=== PATIENT | female | born 1955 | race Caucasian/White ===

== ENCOUNTER 2020-08-14 16:03 | Inpatient (IN) | payer MEDICARE ==
[~2020-08-14] VITALS: Ht 157.5 cm; Wt 41.3 kg
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
[2020-08-14] MEDS ORDERED: MAG HYDROX/AL HYDROX/SIMETH 30 ML UDC PO PRN (16:30)
[2020-08-14] MEDS ORDERED: MAGNESIUM HYDROXIDE 30 ML UDC PO PRN (16:30)
[2020-08-14] MEDS ORDERED: BLOOD SUGAR DIAGNOSTIC 1 EACH STRIP IN ONE (16:30)
[2020-08-14] MEDS ORDERED: ACETAMINOPHEN 325 MG TABLET PO PRN (16:30)
[2020-08-14] MEDS ORDERED: TEMAZEPAM 7.5 MG CAPSULE PO PRN (16:30)
[2020-08-14] MEDS ORDERED: LORAZEPAM 0.5 MG TABLET PO PRN (16:30)
--- NOTE | 2020-08-14 16:30 | NUR ---
RN-CO: REFUSED MRSA SWAB.
[2020-08-14] MEDS ORDERED: OLAN5TAB3 PO (16:34)
[2020-08-14 18:01] VITALS: BP 94/63
--- NOTE | 2020-08-14 20:00 | NUR ---
RN NOTES: PT. REFUSED VITAL SIGNS , ENCOURAGED X3 STILL REFUSED , PT. BEHAVIOR UNCOOPERTIVE ,ANXIOUS, WILL CONTINUITY WITH CARE.
[2020-08-14 20:41] VITALS: BP 108/57
--- NOTE | 2020-08-15 06:06 | NUR ---
RN NOTES: PT. REFUSED MRSA NARES SWAB , PER PT. I DONT WANT, PT. BEHAVIOR UNCOOPERTIVE ,ANXIOUS, WILL CONTINUITY WITH CARE.
--- NOTE | 2020-08-15 06:34 | NUR ---
RN NOTES: PT. REFUSED AM LABS, PER PT, PT. BEHAVIOR UNCOOPERTIVE ,ANXIOUS, WILL CONTINUITY WITH CARE.
[2020-08-15 09:40] VITALS: BP 129/72
[2020-08-15 16:15] VITALS: BP 113/80
--- NOTE | 2020-08-15 16:30 | NUR ---
Family Contact: There is no family members to contact at this time for this pt.
--- NOTE | 2020-08-15 16:37 | NUR ---
Initial Discharge Plan: Pt is currently homeless and was unable to state where she would want to be discharged. SW will work with the pt and the MD regarding appropriate discharge planning. SW will form a safe and proper discharge.
--- NOTE | 2020-08-15 20:05 | NUR ---
RN NOTES: PT. SEEN BY DR. CRUZ ,NEW ORDERS NOTED AND CARRIED OUT.
[2020-08-15] MEDS: risperiDONE 1 MG TABLET PO SCH (21:00)
--- NOTE | 2020-08-15 21:02 | NUR ---
RN NOTES: REFUSAL MEDICATION PT. REFUSED NIGHT SCHEDULE MEDS RISPERDAL 1 MG PO, ENCOURAGED X3 STILL REFUSED , PER PT.I AM NOT TAKING ANY MEDICATIONS , BEHAVIOR UNCOOPERTIVE ,ANXIOUS, WILL CONTINUITY WITH CARE.
--- NOTE | 2020-08-15 21:02 | NUR ---
RN NOTES: PT. REFUSED VITAL SIGNS , ENCOURAGED X3 STILL REFUSED , PT. BEHAVIOR UNCOOPERTIVE ,ANXIOUS, WILL CONTINUITY WITH CARE.
--- NOTE | 2020-08-16 06:32 | NUR ---
RN NOTES: PT. RESTING WELL IN HER ROOM, CALM AT THIS TIME , DENIES ANY PAIN/ DISCOMFORT AT THIS TIME, NO ACUTE DISTRESS NOTED , ENDORSE TO AM NURSE OR CONTINUITY WITH CARE.
[2020-08-16 08:30] VITALS: BP 101/69
[2020-08-16] MEDS: risperiDONE 1 MG TABLET PO SCH ×2 (08:56→21:57)
--- NOTE | 2020-08-16 08:57 | NUR ---
RN NOTE: MEDICATION REFUSAL PT REFUSED AM DOSE RISPERDAL. "I DON'T TAKE THAT. IT IS NOT MY MEDICINE". EDUCATED PT RE IMPORTANCE OF MEDICATION COMPLIANCE. PT CON'T TO REFUSE X 3. BECAME VERBALLY AGGRESSIVE AND VISIBLY EDUCATED.
[2020-08-16 16:00] VITALS: BP 104/72
[2020-08-16 20:05] VITALS: BP 115/74
--- NOTE | 2020-08-16 22:50 | NUR ---
RN NOTE: MEDICATION REFUSAL PT REFUSED PM DOSE RISPERDAL. "I DON'T TAKE THAT. EDUCATED PT ON IMPORTANCE OF MEDICATION COMPLIANCE. PT CON'T TO REFUSE. PATIENT REQUESTING FOR DIET SODA, DOES NOT WANT MEDICATION.
[2020-08-17 08:00] VITALS: BP 95/55
[2020-08-17] MEDS: risperiDONE 1 MG TABLET PO SCH ×3 (08:48→21:00)
--- NOTE | 2020-08-17 08:56 | NUR ---
RN-CO: PT REFUSED RISPERDAL, ENC X3 STILL REFUSED.
[2020-08-17 16:00] VITALS: BP 111/76
[2020-08-17 21:32] VITALS: BP 115/74
--- NOTE | 2020-08-17 21:57 | NUR ---
GPS-RN NOTES: MEDICATION REFUSAL PATIENT REFUSED SCHEDULED RISPERIDONE DOSE FOR TONIGHT. EDUCATION PATIENT REGARDING MEDICATION COMPLIANCE BUT PATIENT CONTINUED TO REFUSE. WILL CONTINUE TO MONITOR.
[2020-08-18 08:00] VITALS: BP 118/71
[2020-08-18] MEDS: ENSURE ENLIVE CHOC 237 ML CAN PO SCH ×3 (08:23→17:01)
[2020-08-18] MEDS: risperiDONE 1 MG TABLET PO SCH ×3 (08:54→21:00)
--- NOTE | 2020-08-18 09:00 | NUR ---
RN NOTE- PT OPPOSITIONAL PROFANE DELUSIONAL NON MED COMPLIANT
--- NOTE | 2020-08-18 12:15 | NUR ---
Social Service Hearing: EFRAIN spoke to Andrea regarding the hearing for pt. Per Kanu pt refuse to attend hearing. EFRAIN spoke to Sanford via phone at 12:15pm. Pt is upheld after hearing decision.
[2020-08-18 16:00] VITALS: BP 110/64
--- NOTE | 2020-08-18 16:15 | NUR ---
Individual Therapy: SW met with pt. bedside to conduct individual therapy regarding Positive Coping Mechanisms. However, pt. is confused stating "twinkle twinkle little star" and SW unable to engage pt. in meaningful conversation. Patient is not ready for therapy at this time. SW will continue attempt to provide individual therapy.
--- NOTE | 2020-08-18 20:00 | NUR ---
RN NOTES: PT. REFUSED VITAL SIGNS , ENCOURAGED X3 STILL REFUSED , PT. BEHAVIOR UNCOOPERTIVE ,ANXIOUS, WILL CONTINUITY WITH CARE.
--- NOTE | 2020-08-18 21:12 | NUR ---
RN NOTES: REFUSAL MEDICATION PT. REFUSED NIGHT SCHEDULE MEDS RISPERDAL 1 MG PO, ENCOURAGED X3 STILL REFUSED , PER PT.I CANOT HAVE ANY MEDICATIONS , BEHAVIOR UNCOOPERTIVE ,ANXIOUS, WILL CONTINUITY WITH CARE.
[2020-08-19] MEDS: ENSURE ENLIVE CHOC 237 ML CAN PO SCH ×3 (08:19→16:53)
[2020-08-19] MEDS: risperiDONE 1 MG TABLET PO SCH ×2 (09:00→20:55)
--- NOTE | 2020-08-19 15:46 | NUR ---
refused am and afternoon vital signs.
[2020-08-19 20:15] VITALS: BP 105/73
[2020-08-20 08:00] VITALS: BP 113/73
[2020-08-20] MEDS: ENSURE ENLIVE CHOC 237 ML CAN PO SCH ×3 (08:42→17:24)
[2020-08-20] MEDS: risperiDONE 1 MG TABLET PO SCH ×2 (08:43→21:00)
--- NOTE | 2020-08-20 19:02 | NUR ---
REFUSED MEDS ALL DAY.
[2020-08-20 20:54] VITALS: BP 90/54
--- NOTE | 2020-08-20 21:15 | NUR ---
RN NOTES: REFUSAL MEDICATION PT. REFUSED NIGHT SCHEDULE MEDS RISPERDAL 1 MG PO, ENCOURAGED X3 STILL REFUSED , PER PT.I DONT NEED ANY MEDICATIONS , BEHAVIOR UNCOOPERTIVE ,ANXIOUS, WILL CONTINUITY WITH CARE.
[2020-08-21 08:00] VITALS: BP 97/74
[2020-08-21] MEDS: ENSURE ENLIVE CHOC 237 ML CAN PO SCH (08:40)
[2020-08-21] MEDS: risperiDONE 1 MG TABLET PO SCH (09:00)
--- NOTE | 2020-08-21 09:08 | NUR ---
Pt refused to take the Risperdal po. Offered 3x and explained on he importance and the risk of not taking and still refusing and said "I don't need".
[2020-08-21] MEDS: ENSURE ENLIVE 237 ML LIQUID (VANILLA) PO SCH ×2 (12:23→17:21)
[2020-08-21 16:00] VITALS: BP 113/65
[2020-08-21] MEDS: BENZTROPINE MESYLATE (1 MG) 1 MG TABLET PO SCH (16:09)
[2020-08-21] MEDS: HALOPERIDOL 5 MG TABLET PO SCH (16:09)
[2020-08-21] MEDS: HALOPERIDOL LACTATE INJ 5 MG/ML VIAL IM PRN (16:10)
[2020-08-21] MEDS: BENZTROPINE MESYLATE (2MG/2ML) 2 MG/2 ML AMPUL IM PRN (16:10)
--- NOTE | 2020-08-21 16:21 | NUR ---
Haldol 5 mg IM and Cogentin 1 mg IM given. pt. is on Riesed and refusing po Haldol and Cogentin. Pt. was not resistive but verbally abusive to staffs.
[2020-08-22 08:00] VITALS: BP 139/72
[2020-08-22] MEDS: ENSURE ENLIVE 237 ML LIQUID (VANILLA) PO SCH ×3 (08:42→17:37)
[2020-08-22] MEDS: BENZTROPINE MESYLATE (1 MG) 1 MG TABLET PO SCH ×3 (08:43→17:00)
[2020-08-22] MEDS: HALOPERIDOL 5 MG TABLET PO SCH ×3 (08:43→17:00)
--- NOTE | 2020-08-22 09:00 | NUR ---
RN NOTE- PT ALERT OPPOSITIONAL PROFANE THROWING BREAKFAST TRAY ON FLOOR. WHEN REDIRECTED TOLD THIS RN TO 'F*&2 YOURSELF" PT REFUSING RX. IM NEVILLE ESTRADA GIVEN.
[2020-08-22] MEDS: HALOPERIDOL LACTATE INJ 5 MG/ML VIAL IM PRN ×2 (09:09→12:32)
[2020-08-22] MEDS: BENZTROPINE MESYLATE (2MG/2ML) 2 MG/2 ML AMPUL IM PRN ×2 (09:10→12:32)
--- NOTE | 2020-08-22 17:38 | NUR ---
RN NOTE- PT VERY SOMNOLENT, LETHARGIC. CALLED DR CRUZ REGARDING 1700 DOSE HALDOL AND COGENTIN. ORDERED TO HOLD DOSE.
[2020-08-23] MEDS: ENSURE ENLIVE 237 ML LIQUID (VANILLA) PO SCH ×3 (07:44→16:05)
[2020-08-23 08:00] VITALS: BP 104/77
[2020-08-23] MEDS: HALOPERIDOL 5 MG TABLET PO SCH ×2 (08:04→16:05)
[2020-08-23] MEDS: BENZTROPINE MESYLATE (1 MG) 1 MG TABLET PO SCH ×2 (08:04→16:05)
[2020-08-23] MEDS: HALOPERIDOL LACTATE INJ 5 MG/ML VIAL IM PRN ×2 (08:05→16:04)
[2020-08-23] MEDS: BENZTROPINE MESYLATE (2MG/2ML) 2 MG/2 ML AMPUL IM PRN ×2 (08:05→16:04)
--- NOTE | 2020-08-23 09:34 | NUR ---
RN NOTE- PT QUIET THIS MORNING, ISOLATIVE, COVERS HEAD W BLANKETS. PO INTAKE FAIR, REFUSED RX. HALDOL& LAURAENTIN IM GIVEN W FEMALE STAFF PRESENT . DENIES ALL
--- NOTE | 2020-08-24 06:00 | NUR ---
NONVERBAL THE WHOLE NIGHT NO EYE CONTACT AMBULATED THE HALLWAYS STEADY ON HER LEGS AT 5AM SHE WAS AT THE NURSING STATION ASKING WHY I WAS OPENING HER DOOR. EXPLAINED I NEEDED TO CHECK ON HER. SHE DIDN'T COMMENT JUST WALKED AWAY.
[2020-08-24] MEDS: HALOPERIDOL 5 MG TABLET PO SCH ×2 (08:37→17:00)
[2020-08-24] MEDS: BENZTROPINE MESYLATE (1 MG) 1 MG TABLET PO SCH ×2 (08:37→17:00)
[2020-08-24] MEDS: ENSURE ENLIVE 237 ML LIQUID (VANILLA) PO SCH ×3 (08:38→17:12)
--- NOTE | 2020-08-24 08:38 | NUR ---
RN NOTE PATIENT DRANK THE ENSURE VANILLA, DID NOT GET THE CHANCE TO SCAN ENSURE, PATIENT THREW IT AWAY AFTER DRINKING IT.
--- NOTE | 2020-08-24 12:05 | NUR ---
RN NOTE PATIENT DRINKS SCHEDULED ENSURE, REFUSED TO SCAN HER ENSURE AT THIS TIME.
[2020-08-24] MEDS: BENZTROPINE MESYLATE (2MG/2ML) 2 MG/2 ML AMPUL IM PRN (16:58)
[2020-08-24] MEDS: HALOPERIDOL LACTATE INJ 5 MG/ML VIAL IM PRN (16:58)
--- NOTE | 2020-08-24 17:13 | NUR ---
RN NOTE PATIENT KEPT ON REFUSING COGENTIN AND HALDOL ORALLY, IM INJECTION WERE GIVEN OF COGENTIN AND HALDOL PER PROTOCOL.
[2020-08-24 20:10] VITALS: BP 111/74
[2020-08-24 20:55] VITALS: BP 111/74
[2020-08-25 08:00] VITALS: BP 100/75
[2020-08-25] MEDS: ENSURE ENLIVE 237 ML LIQUID (VANILLA) PO SCH ×3 (08:00→17:00)
[2020-08-25] MEDS: BENZTROPINE MESYLATE (1 MG) 1 MG TABLET PO SCH ×2 (09:00→17:00)
[2020-08-25] MEDS: HALOPERIDOL 5 MG TABLET PO SCH ×2 (09:00→17:00)
[2020-08-25] MEDS: HALOPERIDOL LACTATE INJ 5 MG/ML VIAL IM PRN ×2 (10:39→17:50)
[2020-08-25 21:17] VITALS: BP 101/62
[2020-08-26 08:00] VITALS: BP 105/64
[2020-08-26] MEDS: HALOPERIDOL 5 MG TABLET PO SCH ×3 (09:00→17:00)
[2020-08-26] MEDS: BENZTROPINE MESYLATE (1 MG) 1 MG TABLET PO SCH ×3 (09:00→17:00)
[2020-08-26] MEDS: ENSURE ENLIVE 237 ML LIQUID (VANILLA) PO SCH ×3 (09:57→16:58)
[2020-08-26] MEDS: BENZTROPINE MESYLATE (2MG/2ML) 2 MG/2 ML AMPUL IM SCH ×3 (10:03→18:29)
[2020-08-26] MEDS: HALOPERIDOL LACTATE INJ 5 MG/ML VIAL IM PRN ×3 (10:04→18:30)
--- NOTE | 2020-08-26 10:30 | NUR ---
pt. just woke up so bibi just given.
--- NOTE | 2020-08-26 14:25 | NUR ---
REFUSAL OF AFTERNOON INJECTIONS IN DIFFERENT SITE FROM AM INJECTIONS,INSTRUCTED ON NEED TO ROTATE SITES ALL INJECTIONS GIVEN SO FAR TODAY IN LT. HIP.
[2020-08-26 16:00] VITALS: BP 101/59
--- NOTE | 2020-08-26 18:56 | NUR ---
PT. BECAME LIVID WHEN RN OFFERED PO VINOD. MEDS,PT. REFUSING THEN RN INSTRUCTED PT. WILL NEED INJECTIONS.PT. STATED WRONG ORDER. MEDS GIVEN ORDERED.
[2020-08-26 20:58] VITALS: BP 96/64
--- NOTE | 2020-08-27 06:44 | NUR ---
GPS RN CLOSING NOTES: PATIENT AWAKE, A/O X2, AMBULATING IN HALLWAY. SLEPT 7HOURS THIS SHIFT. NO S/S OF DISTRESS. NO C/O PAIN. RESPIRATION EVEN AND UNLABORED WITH EQUAL RISE AND FALL OF THE CHEST ON ROOM AIR. OFFERED FLUID AND SNACKS TOLERATED THIS SHIFT. ALL PATIENT CARE NEEDS HAVE BEEN MET ANTICIPATED. WILL CONTINUE TO MONITOR FOR SAFETY, MOOD AND BEHAVIOR AND ENDORSE TO AM SHIFT.
[2020-08-27] MEDS ORDERED: HALOPERIDOL DECANOATE IM 100 MG/ML AMPUL IM ONE (07:30)
[2020-08-27 08:00] VITALS: BP 97/74
[2020-08-27] MEDS: ENSURE ENLIVE 237 ML LIQUID (VANILLA) PO SCH ×3 (08:27→17:13)
[2020-08-27] MEDS: HALOPERIDOL 5 MG TABLET PO SCH ×3 (09:00→17:00)
[2020-08-27] MEDS: BENZTROPINE MESYLATE (1 MG) 1 MG TABLET PO SCH ×3 (09:00→17:00)
--- NOTE | 2020-08-27 09:00 | NUR ---
RN NOTE- PT ALERT OPPOSITIONAL NON MED COMPLIANT, NEVILLE ESTRADA IM GIVEN PER REISE ORDERS, PO INTAKE FAIR, WITHDRAWN ISOLATIVE FLAT AFFECT DENIES ALL
--- NOTE | 2020-08-27 09:03 | NUR ---
SNF Referral: EFRAIN faxed a SNF referral to [facility] with attn to Rob to the fax number: [phone].
[2020-08-27] MEDS: BENZTROPINE MESYLATE (2MG/2ML) 2 MG/2 ML AMPUL IM SCH ×3 (09:58→17:13)
[2020-08-27] MEDS: HALOPERIDOL LACTATE INJ 5 MG/ML VIAL IM PRN ×3 (09:58→17:14)
--- NOTE | 2020-08-27 11:03 | NUR ---
SNF Contact: Hawk ([phone]) from [facility] contacted the SW and stated that she cannot accept this pt to their facility as the pt does not have any medical needs.
--- NOTE | 2020-08-27 11:04 | NUR ---
SNF Referral: EFRAIN faxed a SNF referral to [facility] with attn to Sugar to the fax number: [phone].
--- NOTE | 2020-08-27 11:08 | NUR ---
SNF Referral: SW faxed a SNF referral to [facility] with attn to Yan to the fax number: [phone].
--- NOTE | 2020-08-27 11:52 | NUR ---
SNF Contact: Chase ([phone]) from [facility] contacted the SW and asked a few questions about the pts behavior and then stated that he would give the SW a call back regarding whether or not the pt is accepted.
--- NOTE | 2020-08-27 11:53 | NUR ---
SNF Contact: Norberto ([phone]) from [facility] contacted the SW and stated that the pt was accepted to their facility.
[2020-08-27 16:00] VITALS: BP 90/63
[2020-08-27 20:20] VITALS: BP 110/63
--- NOTE | 2020-08-27 23:54 | NUR ---
GPS RN NOTES: PATIENT REFUSED COVID-19 ANTIGEN SWAP, BECAME AGITATED STATING "I HAVE DONE IT 6 TIMES, I WON'T DO IT AGAIN.
--- NOTE | 2020-08-28 05:16 | NUR ---
GPS RN NOTES: SECOND ATTEMPT TO SWAB PATIENT FOR COVID-19 ANTIGEN FOR PLACEMENT BUT PATIENT STILL REFUSED STATING "I HAVE TOLD YOU BEFORE THAT I HAVE DONE IT 6 TIMES, I WON'T DO IT AGAIN.
--- NOTE | 2020-08-28 06:52 | NUR ---
GPS RN CLOSING NOTES: PATIENT AWAKE, A/O X2. PATIENT IS SCHEDULED TO DC AT 1PM TO [facility] ([facility] THIRD ATTEMPT MADE TO SWAB PATIENT FOR COVID-19 ANTIGEN FOR PLACEMENT BUT PATIENT STILL REFUSED. PATIENT SLEPT 4HOURS THIS SHIFT. NO S/S OF DISTRESS. NO C/O PAIN. RESPIRATION EVEN AND UNLABORED WITH EQUAL RISE AND FALL OF THE CHEST ON ROOM AIR. OFFERED FLUID AND SNACKS TOLERATED THIS SHIFT. ALL PATIENT CARE NEEDS MET ANTICIPATED. WILL CONTINUE TO MONITOR FOR SAFETY, MOOD AND BEHAVIOR AND ENDORSE TO AM SHIFT.
[2020-08-28 08:00] VITALS: BP 105/66
[2020-08-28] MEDS: ENSURE ENLIVE 237 ML LIQUID (VANILLA) PO SCH ×2 (08:35→12:33)
[2020-08-28] MEDS: BENZTROPINE MESYLATE (1 MG) 1 MG TABLET PO SCH ×2 (09:00→13:00)
[2020-08-28] MEDS: HALOPERIDOL 5 MG TABLET PO SCH ×2 (09:00→13:00)
[2020-08-28] MEDS: HALOPERIDOL LACTATE INJ 5 MG/ML VIAL IM PRN ×2 (09:03→13:20)
[2020-08-28] MEDS: BENZTROPINE MESYLATE (2MG/2ML) 2 MG/2 ML AMPUL IM SCH ×2 (09:03→13:20)
--- NOTE | 2020-08-28 12:00 | NUR ---
Dr. Gomez gave an order to D/C hold and D/C to [facility] and to follow up with psych and medical doctors. Dr. Vigil made aware of the admission and reconciled meds. Addendum: 08/28/20 at 1512 by NIURKA LOPEZ RN Pt. without distress, denies suicidal and homicidal.
--- NOTE | 2020-08-28 13:15 | NUR ---
Report given to Sameera andrade RN over the facility and informed that pt. had Haldol Dec of 50 mg IM on 08/27/20. Pt. refused to sign the discharge papers.
--- NOTE | 2020-08-28 15:14 | NUR ---
Pt. left unit the via ambulance and transported via a gurney with belongings. Pt. left without distress; BP 147/76, MN 83, RR 18, temp 87.4 and oxygen sat 98%.
--- NOTE | 2020-08-28 15:22 | NUR ---
Discharge Note: Pt will be discharged to [facility] ([facility]) located at [address] [place] [address]; ([phone]). Pt will be transported via [facility] at 1PM. does not have anyone to contact regarding this discharge. Upon discharge, pt appears to be in a dysphoric mood and presents with a guarded affect. Pt denies suicidal and homicidal ideation and denies visual and auditory hallucinations. Pt appears to be alert and oriented x3 (time, place, and self). Pt appears to be well groomed and ambulatory with an unsteady gait. Pt will continue to follow up with psychiatrist, Dr. Irizarry, located at [address], [address] [place] [address]; and funeral home makeup artist, Dr. Lynn, located at [address] [place], [address]; . Pt was provided with homeless resources and a copy was placed in the chart. The homeless waiver, choice of vendor form and the multidisciplinary exit care form was done, printed, signed, and given to the patient.
== END 2020-08-28 15:15 | DRG 885 ==
LOC: GPS 16:03
PROVIDERS: ADMIT Psychiatry & Neurology Psychiatry; ATTEND Nurse Practitioner Acute Care
DX: F29 Unspecified psychosis not due to a substance or known physiological condition (principal); F41.9 Anxiety disorder, unspecified; Z73.6 Limitation of activities due to disability; F32.9 Major depressive disorder, single episode, unspecified; Z59.0 Homelessness; F20.0 Paranoid schizophrenia; D89.89 Other specified disorders involving the immune mechanism, not elsewhere classified
CPT/HCPCS: J0515; J1630; J1631

== ENCOUNTER 2020-09-29 00:17 | Emergency (ER) | payer MEDICARE, OTHER ==
[~2020-09-29] VITALS: Ht 157.5 cm; Wt 43.1 kg
--- NOTE | 2020-09-29 00:19 | NUR ---
PT BIBEMS C/O SCALP LACERATION S/P GLF IN THE BATHROOM. (-)KO. PT PLACED IN BED 10 ON MONITOR AND PULSE OX. AWAITING ER MD FOR EVAL. NO ACUTE DISTRESS NOTED.
[2020-09-29] MEDS ORDERED: TDAP [DIPH/PERTUSSIS/TET] 0.5 ML VIAL IM ONE ×2 (00:30→00:36)
--- NOTE | 2020-09-29 02:34 | NUR ---
[facility] CALLED FOR TRANSPORT ETA 30-45MIN.
[2020-09-29 03:06] VITALS: BP 126/76
--- NOTE | 2020-09-29 03:06 | NUR ---
REPORT GIVEN TO EMT, PT TRANSFERED BACK TO FACILITY.
== END 2020-09-29 03:07 ==
LOC: ER 00:19
DX: S01.01XA Laceration without foreign body of scalp, initial encounter (principal); I10 Essential (primary) hypertension; F32.9 Major depressive disorder, single episode, unspecified; F20.9 Schizophrenia, unspecified; Z88.2 Allergy status to sulfonamides; W18.39XA Other fall on same level, initial encounter; Y93.89 Activity, other specified; Y92.091 Bathroom in other non-institutional residence as the place of occurrence of the external cause; Y99.8 Other external cause status
CPT/HCPCS: 70450-TC; 72125-TC; 90715

== ENCOUNTER 2020-11-20 21:32 | Inpatient (IN) | payer MEDICARE, OTHER ==
[~2020-11-20] VITALS: Ht 157.5 cm; Wt 45.4 kg
--- NOTE | 2020-11-20 21:35 | NUR ---
pt bibpa c/o n/v and poor po intake. Pt aaox4 breathing evenly and unlabored. pt skin warm, dry, and intact. Per ems, pt normally gets up and walks, but since 1900, pt has been "weak and quiet". Pt attached to monitor and pox. pt given blankets and call light within reach
--- NOTE | 2020-11-20 22:04 | NUR ---
urine sent to lab
--- NOTE | 2020-11-20 22:10 | NUR ---
pt placed on 2L O2 via NC for comfort
[2020-11-20 22:16] LABS: BASOPHILS # (AUTO) 0.1 /CMM (0.0-0.2); BASOPHILS % (AUTO) 0.5 % (0.0-2.0); HEMATOCRIT 39 % (33-45); HEMOGLOBIN 13.5 g/dL (11.5-14.8); LYMPHOCYTES % (AUTO) 9.6 % (20.0-44.0); MEAN CORPUSCULAR HGB CONC 34 g/dl (31.0-36.0); MEAN CORPUSCULAR VOLUME 88 fL (82-100); MONOCYTES # (AUTO) 0.6 /CMM (0.1-1.30); MONOCYTES % (AUTO) 5.9 % (2.0-12.0); NEUTROPHILS # (AUTO) 8.6 /CMM (1.8-8.9); PLATELET COUNT (AUTO) 275 /CMM (150-450); RED BLOOD CELL COUNT(AUTO) 4.48 MIL/uL (4.0-5.2); WHITE BLOOD COUNT (AUTO) 10.4 K/uL (4.3-11.0)
[2020-11-20 22:30] LABS: ALBUMIN 3.8 g/dL (3.4-5.0); BILIRUBIN,DIRECT 0.1 mg/dL (0.0-0.2); BILIRUBIN,TOTAL 0.6 mg/dL (0.2-1.0); CALCIUM, SERUM 8.8 mg/dL (8.5-10.1); CREATININE 0.7 mg/dL (0.6-1.3)
[2020-11-20] MEDS ORDERED: ONDANSETRON HCL/PF 4 MG/2 ML VIAL IV ONE (22:30)
[2020-11-20] MEDS ORDERED: IV NS 0.9% 1,000 ML BAG IV ONE (22:30)
[2020-11-20 22:33] LABS: POTASSIUM 2.5 mmol/L (3.5-5.1)
--- NOTE | 2020-11-20 22:33 | NUR ---
K 2.5
[2020-11-20] MEDS ORDERED: IV NS 0.9% 250 ML IV ONE (22:41)
[2020-11-20] MEDS ORDERED: IOHEXOL-300 100 ML VIAL IV ONE (22:41)
[2020-11-20] MEDS ORDERED: CT SWABBABLE VALVE TRANS SET 1 EA INFUS.SET MC ONE (22:41)
--- NOTE | 2020-11-20 22:54 | NUR ---
urine resent to lab
[2020-11-20] MEDS ORDERED: POTASSIUM CHLORIDE 20 MEQ TAB.PRT.SR PO ONE ×2 (22:59→23:00)
[2020-11-20 23:00] LABS: BILIRUBIN,URINE Negative (NEGATIVE); COLOR,URINE YELLOW (YELLOW); LEUKOCYTE ESTERASE ,URINE Negative (NEGATIVE); NITRITE, URINE Negative (NEGATIVE); PH,URINE 7.5 (5.0-8.0); PROTEIN,URINE Negative (NEGATIVE); UGLUCOSE Negative (NEGATIVE); UROBILINOGEN,URINE 0.2 EU/dL (0.2)
[2020-11-20] MEDS ORDERED: IV NS 0.9% 1,000 ML IV STA (23:01)
[2020-11-20 23:09] LABS: BACTERIA,URINE Rare /HPF (None Seen); SQUAMOUS EPITHELIAL CELL,UR Few /HPF (None Seen); WBC,URINE NONE SEEN /HPF (0-3)
--- NOTE | 2020-11-20 23:18 | NUR ---
COVID SWAB SENT TO LAB
--- NOTE | 2020-11-20 23:20 | NUR ---
pt taken to ct
[2020-11-20] MEDS ORDERED: AMOX/CLAVULANATE 875 MG TABLET PO ONE (23:30)
--- NOTE | 2020-11-20 23:43 | NUR ---
TELE BED 120-1
--- NOTE | 2020-11-21 01:06 | NUR ---
PAGED PANEL PER DR'S ORDER
--- NOTE | 2020-11-21 01:37 | NUR ---
DR FINK ON THE PHONE WITH DR MENDOZA
--- NOTE | 2020-11-21 01:50 | NUR ---
gave report to KEE Guevara for cathy
[2020-11-21] MEDS ORDERED: Z GUARD REMEDY 2 OZ OINT TP PRN (02:00)
[2020-11-21] MEDS ORDERED: MAGNESIUM HYDROXIDE 30 ML UDC PO PRN (02:00)
[2020-11-21] MEDS ORDERED: HYDROCODONE/APAP 5/325MG TABLET PO PRN (02:00)
[2020-11-21] MEDS ORDERED: ACETAMINOPHEN 325 MG TABLET PO PRN (02:00)
[2020-11-21] MEDS ORDERED: ONDANSETRON HCL/PF 4 MG/2 ML VIAL IVP PRN (02:00)
[2020-11-21] MEDS ORDERED: MAG HYDROX/AL HYDROX/SIMETH 30 ML UDC PO PRN (02:00)
[2020-11-21] MEDS ORDERED: ZOLPIDEM TARTRATE 5 MG TABLET PO PRN (02:00)
--- NOTE | 2020-11-21 02:05 | NUR ---
rn telehealth notes A 65 y/o female a/o x 2-3 able to make needs known .came from [facility] with admitting dx of of hyponatremia , under the service of dr menendez ,pts on r/a sating 100 % SR on the monitor no sob no distress noted .v/s stable afebrile npo status .all needs attended too ,call light within reach ,kept pts clean dry and comfortable.potassium of 2.5 with order 40 meq premix to replace .with right ac G#20 intact and patent,pts is full code allergy to sulfa.will continue to monitor pts.
[2020-11-21] MEDS: POTASSIUM CL. PREMIX PERIPHER. 50 ML IV SCH ×4 (02:42→05:49)
[2020-11-21 03:02] VITALS: BP 103/87
[2020-11-21 04:00] VITALS: BP 104/72
[2020-11-21 07:07] LABS: BASOPHILS % (AUTO) 0.5 % (0.0-2.0); EOSINOPHILS % (AUTO) 0.4 % (0.0-6.0); HEMATOCRIT 39 % (33-45); HEMOGLOBIN 13.2 g/dL (11.5-14.8); LYMPHOCYTES # (AUTO) 0.7 /CMM (0.8-4.8); LYMPHOCYTES % (AUTO) 8.7 % (20.0-44.0); MEAN CORPUSCULAR HGB CONC 34 g/dl (31.0-36.0); MEAN CORPUSCULAR VOLUME 90 fL (82-100); MONOCYTES # (AUTO) 0.3 /CMM (0.1-1.30); NEUTROPHILS # (AUTO) 7.3 /CMM (1.8-8.9); NEUTROPHILS % (AUTO) 86.4 % (43.0-81.0); PLATELET COUNT (AUTO) 297 /CMM (150-450); WHITE BLOOD COUNT (AUTO) 8.4 K/uL (4.3-11.0)
--- NOTE | 2020-11-21 07:12 | NUR ---
tele tech notes Pts in bed awake able to make needs known , kcl replacement done as ordered , pts still npo status , endorse to rn day shift nurse for continuity of care .pts wants to eat endorse to f/u up with md .
[2020-11-21 07:16] LABS: CALCIUM, SERUM 7.9 mg/dL (8.5-10.1); CREATININE 0.6 mg/dL (0.6-1.3); MAGNESIUM 1.8 mg/dL (1.8-2.4); PHOSPHORUS 4.2 mg/dL (2.5-4.9); POTASSIUM 4.9 mmol/L (3.5-5.1)
--- NOTE | 2020-11-21 07:50 | NUR ---
RN NOTE PATIENT IS IN BED WITH HOB AT SEMI FOWLERS POSITION. PATIENT IS ON ROOM AIR WITH NO SIGNS OF LABORED BREATHING. PATIENT IS AOX3. BED IS LOCKED IN THE LOWEST POSITION, 3 GUARD RAILS RAISED, CALL MOCTEZUMA WITHIN REACH, AND ALL HOSPITAL SAFETY PRECAUTIONS ARE BEING FOLLOWED. WILL CONTINUE TO MONITOR THROUGHOUT SHIFT.
[2020-11-21 08:00] VITALS: BP 95/68
[2020-11-21 12:00] VITALS: BP 106/65
--- NOTE | 2020-11-21 19:04 | NUR ---
RN NOTE PATIENT IS IN BED WITH HOB AT SEMI FOWLERS POSITION. PATIENT IS ON ROOM AIR WITH NO SIGNS OF LABORED BREATHING. PATIENT IS AOX3. RAC 20 IS PATENT AND INTACT. BED IS LOCKED IN THE LOWEST POSITION, 3 GUARD RAILS RAISED, CALL MOCTEZUMA WITHIN REACH, AND ALL HOSPITAL SAFETY PRECAUTIONS ARE BEING FOLLOWED. PATIENT REMAINED STABLE THROUGHOUT SHIFT. WILL ENDORSE TO RESIDUE FURNACE OPERATOR RN.
--- NOTE | 2020-11-21 19:45 | NUR ---
RN NOTE RECEIVED PT ALERT AND ORIENTED X 2-3, AMBULATES TO REST ROOM WITH STEADY GAIT. DENIES ANY PAIN AT THIS TIME. NO SIGNS OF DISTRESS NOTED. PT WITH IV ON RAC PATENT AND INTACT, FLUSHES WELL. ALL SAFETY MEASURES IN PLACE. BED LOCKED IN LOWEST POSITION, SIDE RAILS UP. ALL LIGHT WITHIN REACH. WILL CONTINUE TO MONITOR.
[2020-11-21 20:00] VITALS: BP 99/68
[2020-11-21] MEDS: FAMOTIDINE (20 MG) 20 MG TABLET PO SCH ×2 (21:00→21:49)
[2020-11-21] MEDS: SUCRALFATE 1 G TABLET PO SCH (21:55)
--- NOTE | 2020-11-21 21:55 | NUR ---
RN NOTE PT REFUSED TO TAKE PEPCID AND CARAFATE. EXPLAINED ITS USES, RISKS AND BENEFITS. PER PT SHE DOES NOT NEED IT.
--- NOTE | 2020-11-22 00:30 | NUR ---
RN NOTE PT REFUSED TO HAVE VITAL SIGNS CHECKED. CONTINUE ON TELE MONITORING, SINUS RHYTHM WITH HR OF 65. NO SIGNS OF DISTRESS. DENIES PAIN. WILL CONTINUE TO MONITOR.
--- NOTE | 2020-11-22 05:00 | NUR ---
RN NOTE PT STILL REFUSING TO HAVE VS CHECK, ALSO PT REMOVED TELE BOX. SHE SAID SHE CAN'T AFFORD. EXPLAINED THAT SHE DOES NOT NEED TO WORRY ABOUT THE FEE. EXPLAINED RISKS AND BENEFITS. WILL CONTINUE TO MONITOR.
[2020-11-22 06:30] VITALS: BP 114/86
--- NOTE | 2020-11-22 06:50 | NUR ---
RN NOTE PT AWAKE. ABLE TO CHECK VITAL SIGNS, WNL. NO SIGNS OF DISTRESS. PT REMOVED IV LINE. REFUSED TO HAVE NEW IV ALSO REFUSED BLOOD DRAW. EXPLAINED RISKS AND BENEFITS, VERBALIZES UNDERSTANDING. WILL ENDORSE TO NEXT SHIFT NURSE FOR TY.
[2020-11-22] MEDS: SUCRALFATE 1 G TABLET PO SCH ×4 (07:30→21:42)
--- NOTE | 2020-11-22 07:45 | NUR ---
RN NOTE PATIENT IS IN BED WITH HOB AT SEMI FOWLERS POSITION. PATIENT IS AOX2. NO SIGNS OF LABORED BREATHING ON ROOM AIR. PATIENT HAS NO IV ACCESS AND IS REFUSING INSERTION OF NEW ONE. BED IS LOCKED IN THE LOWEST POSITION, 3 GUARD RAILS RAISED, CALL MOCTEZUMA WITHIN REACH, AND ALL HOSPITAL SAFETY PRECAUTIONS ARE BEING FOLLOWED. WILL CONTINUE TO MONITOR THROUGHOUT SHIFT.
[2020-11-22] MEDS: FAMOTIDINE (20 MG) 20 MG TABLET PO SCH ×2 (08:12→21:00)
--- NOTE | 2020-11-22 08:30 | NUR ---
RN NOTE PATIENT REFUSED ALL AM MEDS WELL AM VITAL SIGNS. EDUCATED PATIENT ON IMPORTANCE OF MEDICATION ADHERENCE AND PATIENT STILL REFUSED. CHARGE NURSE AWARE.
--- NOTE | 2020-11-22 18:50 | NUR ---
RN NOTE PATIENT IS IN BED WITH HOB AT SEMI FOWLERS POSITION. PATIENT IS AOX2. NO SIGNS OF LABORED BREATHING ON ROOM AIR. PATIENT HAS NO IV ACCESS AND IS REFUSING INSERTION OF NEW ONE. BED IS LOCKED IN THE LOWEST POSITION, 3 GUARD RAILS RAISED, CALL MOCTEZUMA WITHIN REACH, AND ALL HOSPITAL SAFETY PRECAUTIONS ARE BEING FOLLOWED. PATIENT REFUSED ALL MEDS THROUGHOUT DAY WELL CT SCAN. PATIENT REMAINED STABLE THROUGHOUT SHIFT. WILL ENDORSE TO CONFIGURATION MANAGEMENT ARCHITECT RN.
--- NOTE | 2020-11-22 19:45 | NUR ---
RN NOTE RECEIVED PATIENT IN BED RESTING IN BED. AOX2. ON ROOM AIR. DENIES ANY PAIN OR DISCOMFORT AT THIS TIME. PATIENT HAS NO IV ACCESS AND IS REFUSING INSERTION. SITTER AT BEDSIDE. BED IS LOCKED IN THE LOWEST POSITION, SIDE RAILS UP X 2, CALL LIGHT WITHIN REACH. SAFETY PRECAUTIONS IN PLACE. WILL CONT TO MONITOR PATIENT.
[2020-11-22 20:00] VITALS: BP 98/64
[2020-11-22] MEDS: risperiDONE 1 MG TABLET PO SCH (21:00)
--- NOTE | 2020-11-23 00:10 | NUR ---
RN NOTE PT REFUSED LAB DRAW AND V/S.
[2020-11-23 04:00] VITALS: BP 124/76
--- NOTE | 2020-11-23 06:45 | NUR ---
RN NOTE CUSHION MAKER HAND IN ROOM. PT DECLINED BLOOD DRAW X2.
[2020-11-23] MEDS: SUCRALFATE 1 G TABLET PO SCH (07:30)
--- NOTE | 2020-11-23 08:00 | NUR ---
ms rn note patient in bed , alert oriented noncompliant with care strangely refused to take all po meds and ale lab, on ra no sob noted at this time per dr anmol ram to transfer to gps department bed in lowest and locked position able to eat breakfast self will cont to monitor
[2020-11-23] MEDS: FAMOTIDINE (20 MG) 20 MG TABLET PO SCH (08:14)
[2020-11-23] MEDS: risperiDONE 1 MG TABLET PO SCH (08:15)
--- NOTE | 2020-11-23 10:15 | NUR ---
ms rn note report given to tang sosa ,taking patient to gps by bed with stable condition as ordered still strongly refused to do lab
== END 2020-11-23 09:17 | DRG 392 ==
LOC: ER 21:32 → TELE1 23:48 → MEDSG1 11-23 06:53
PROVIDERS: ADMIT Registered Nurse; ATTEND Registered Nurse
DX: A09 Infectious gastroenteritis and colitis, unspecified (principal); E87.1 Hypo-osmolality and hyponatremia; J98.11 Atelectasis; J90 Pleural effusion, not elsewhere classified; E87.6 Hypokalemia; I10 Essential (primary) hypertension; G20 Parkinson's disease; R27.8 Other lack of coordination; M13.0 Polyarthritis, unspecified; F20.9 Schizophrenia, unspecified; F32.9 Major depressive disorder, single episode, unspecified; Z88.2 Allergy status to sulfonamides; Z91.19 Patient's noncompliance with other medical treatment and regimen; M35.00 Sjogren syndrome, unspecified; G31.84 Mild cognitive impairment of uncertain or unknown etiology; E73.9 Lactose intolerance, unspecified; E86.1 Hypovolemia
CPT/HCPCS: 36415; 80048-TC; 80061-TC; 80076-TC; 81001; 83690-TC; 83735-TC; 84100-TC; 85025-TC; 87040-TC; 87081-TC; C9803; G0378; J3480; J7030; J7050; Q9967

== ENCOUNTER 2020-11-23 09:51 | Inpatient (IN) | payer MEDICARE ==
[~2020-11-23] VITALS: Ht 165.1 cm; Wt 56.7 kg
[2020-11-23] MEDS ORDERED: MAG HYDROX/AL HYDROX/SIMETH 30 ML UDC PO PRN (10:00)
[2020-11-23] MEDS ORDERED: TEMAZEPAM 7.5 MG CAPSULE PO PRN (10:00)
[2020-11-23] MEDS ORDERED: MAGNESIUM HYDROXIDE 30 ML UDC PO PRN (10:00)
[2020-11-23] MEDS ORDERED: BLOOD SUGAR DIAGNOSTIC 1 EACH STRIP IN ONE (10:00)
[2020-11-23] MEDS ORDERED: LORAZEPAM 0.5 MG TABLET PO PRN (10:00)
[2020-11-23] MEDS ORDERED: ACETAMINOPHEN 325 MG TABLET PO PRN (10:00)
--- NOTE | 2020-11-23 10:05 | NUR ---
TRACKMOBILE OPERATOR NOTE; PATIENT IS A 65 YEAR OLD FEMALE ADMITTED FROM [facility] ON A 5150 FOR GRAVE DISABILITY. ARMOND REPORTS THAT SHE DOES NOT WANT TO HAVE HER MEDICAL TREATMENT INDICATED BASED ON HER MEDICAL EVALUATION OF LOW SODIUM. BOARD AND CARE AND FAMILY ATTEMPTED HOWEVER NO ONE IS ABLE TO ACCEPT HER AND PATIENT DECLINED PLACEMENT IN BOARD AND CARE. PATIENT DOES NOT HAVE A PLAN TO CARE FOR HERSELF, IS GAURDED, ANXIOUS, PARANOID AND SCREAMING WHEN STAFF ADDRESSES HER OR ATTEMPTS TO PROVIDE CARE. PATIENT IS DISORGANIZED, CONFUSED, USING DISTRACTION. VITAL SIGNS REFUSED BY THE PATIENT. SHE REFUSED BLOOD GLUCOSE CHECK, HEIGHT, WEIGHT AND ADMISSION NURSING ASSESSMENT. APPEARS TO HAVE GROSSLY INTACT SKIN. DENIES HISTORY OF SUICIDE OR HOMICIDAL IDEATION. PATIENT IS BEING MONITORED EVERY 15 MINUTES FOR SAFETY AND BEHAVIOR PER GPS PROTOCOL. MAY BEYER RN
[2020-11-23] MEDS: risperiDONE 1 MG TABLET PO SCH ×4 (15:30→20:17)
--- NOTE | 2020-11-23 15:52 | NUR ---
Patient given side effects copy of risperdal as reason for refusal is she was told by Curriculum Counselor Doctor Johnathan that it caused seizures. Says she has taken it but was told not too. Winston Jordan RN
[2020-11-23] MEDS: DIVALPROEX SODIUM 125 MG CAP.SPRINK PO SCH (17:00)
--- NOTE | 2020-11-23 17:16 | NUR ---
Patient refuses medication depakote. Education handout provided regarding side effects. Patient says she cannot take medication because it causes dryness. Patient aware documentation will reflect refusal. Says she has no comment. Winston Jordan RN
[2020-11-23] MEDS ORDERED: ONDANSETRON 4 MG TAB.RAPDIS PO PRN (18:00)
[2020-11-23] MEDS ORDERED: ALUMINUM HYDROXIDE 1,920 MG/30 ML UDC PO PRN (18:00)
[2020-11-23] MEDS ORDERED: Z GUARD REMEDY 4 OZ OINT TP PRN (18:00)
[2020-11-23] MEDS: FAMOTIDINE (20 MG) 20 MG TABLET PO SCH ×2 (20:14→20:17)
[2020-11-23] MEDS: SUCRALFATE 1 G TABLET PO SCH (21:51)
--- NOTE | 2020-11-23 21:52 | NUR ---
RN NOTE PATIENT REFUSED ALL BEDTIME MEDS,EXPLAINED RISKS,AND BENEFITS SHE STRONGLY REFUSED ALL MEDS CONTINUE TO MONITOR
[2020-11-24] MEDS: SUCRALFATE 1 G TABLET PO SCH ×5 (07:30→22:00)
[2020-11-24 08:00] VITALS: BP 144/91
[2020-11-24] MEDS: DIVALPROEX SODIUM 125 MG CAP.SPRINK PO SCH ×3 (08:30→17:00)
[2020-11-24] MEDS: FAMOTIDINE (20 MG) 20 MG TABLET PO SCH ×3 (08:30→21:00)
[2020-11-24] MEDS: risperiDONE 1 MG TABLET PO SCH ×3 (08:30→21:00)
[2020-11-24 15:54] VITALS: BP 111/75
--- NOTE | 2020-11-24 19:31 | NUR ---
notified patient refused medication 11/23 and 11/24 .
--- NOTE | 2020-11-24 21:30 | NUR ---
OMNICELL SYSTEM IS DOWN, UNABLE TO PULL OUT MEDICATIONS. CHAIN OF COMMAND INITIATED. NURSING FIRE EXTINGUISHER TECHNICIAN NOTIFIED. OMNICELL 24HOUR HELP DESK NOTIFIED, AWAITING DISPATCH CHECK PROCESSING CLERK.
--- NOTE | 2020-11-25 00:33 | NUR ---
RN NOTE PT REFUSES MEDICATION, LIPITOR. PT VERBALIZES IT CAUSES ISSUES WITH HER THUMB. PT REFUSES PEPCID AND SUCRALFATE BECAUSE SHE PREFERS A DIFFERENT MEDICATION. REFUSES RISPERDONE VERBALIZING SHE DOES NOT WANT SEIZURES. EXPLAINED IMPORTANCE, RISKS AND BENEFITS AND POSSIBLE SIDE EFFECTS X2. PT STILL REFUSES MEDICATION. ALL NEEDS ATTENDED. PT DENIES PAIN. WILL CONT TO MONITOR CLOSELY THROUGHOUT SHIFT. Addendum: 11/25/20 at 0038 by LIBRADO TIM RN DISREGARD LIPITOR, PT REFUSED MEDICATIONS PEPCID SUCRALFATE AND RISPERIDONE.
[2020-11-25] MEDS: SUCRALFATE 1 G TABLET PO SCH ×4 (07:30→22:00)
[2020-11-25 08:00] VITALS: BP 126/64
[2020-11-25] MEDS: DIVALPROEX SODIUM 125 MG CAP.SPRINK PO SCH ×2 (09:00→17:00)
[2020-11-25] MEDS: FAMOTIDINE (20 MG) 20 MG TABLET PO SCH ×2 (09:00→21:00)
[2020-11-25] MEDS: risperiDONE 1 MG TABLET PO SCH ×2 (09:00→21:00)
[2020-11-25 16:00] VITALS: BP 128/90
--- NOTE | 2020-11-25 16:09 | NUR ---
Point of Contact: There is no one to notify or speak to regarding this patient.
--- NOTE | 2020-11-25 16:31 | NUR ---
Initial Discharge Plan: Pt is currently homeless but states that she has her own that she cannot state the address for. SW will work with the pt and the MD regarding appropriate discharge planning. SW will form a safe and proper discharge.
--- NOTE | 2020-11-25 18:33 | NUR ---
REFUSED MEDS ALL DAY.
[2020-11-25 20:00] VITALS: BP 155/80
--- NOTE | 2020-11-25 22:07 | NUR ---
Patient refused all PM medication.Medication wasted.
[2020-11-26] MEDS: SUCRALFATE 1 G TABLET PO SCH ×4 (07:30→21:12)
[2020-11-26 08:00] VITALS: BP 137/97
[2020-11-26] MEDS: risperiDONE 1 MG TABLET PO SCH ×2 (09:00→21:00)
[2020-11-26] MEDS: FAMOTIDINE (20 MG) 20 MG TABLET PO SCH ×2 (09:00→21:00)
[2020-11-26] MEDS: DIVALPROEX SODIUM 125 MG CAP.SPRINK PO SCH ×2 (09:00→16:45)
--- NOTE | 2020-11-26 09:00 | NUR ---
REFUED AM MEDS.
--- NOTE | 2020-11-26 11:37 | NUR ---
[facility] SWAB DONE AND LAB NOTIFIED TO BLOOD BANK BOOKING CLERK SPECIMEN.
[2020-11-26 16:00] VITALS: BP 141/79
--- NOTE | 2020-11-26 18:11 | NUR ---
NON COMPLIANT WITH MEDS
--- NOTE | 2020-11-26 21:12 | NUR ---
GPS-RN NOTES: MEDICATION REFUSAL PATIENT REFUSED SCHEDULED MEDS FOR TONIGHT CARAFATE, PEPCID AND RISPERDAL. EDUCATED PATIENT REGARDING MEDICATION COMPLIANCE. OFFERED X3, BUT PATIENT CONTINUE TO REFUSE. WILL CONTINUE TO MONITOR.
[2020-11-27] MEDS: SUCRALFATE 1 G TABLET PO SCH ×4 (07:30→22:00)
[2020-11-27 08:00] VITALS: BP 108/75
[2020-11-27] MEDS: risperiDONE 1 MG TABLET PO SCH ×2 (08:24→21:00)
[2020-11-27] MEDS: FAMOTIDINE (20 MG) 20 MG TABLET PO SCH ×2 (08:24→21:00)
[2020-11-27] MEDS: DIVALPROEX SODIUM 125 MG CAP.SPRINK PO SCH ×2 (08:24→16:09)
[2020-11-27 16:00] VITALS: BP 127/86
--- NOTE | 2020-11-27 19:30 | NUR ---
GPS RN NOTE, RECEIVED PATIENT AWAKE AND IN BED, NO S/S OR COMPLAINTS OF PAIN AT THIS TIME. PATIENT IS DISPLAYING NO S/S OF APPARENT DISTRESS AT THIS TIME. PATIENT BREATHING IS UNLABORED WITH EQUAL RISE AND FALL OF THE CHEST. PATIENT IS ALERT AND ORIENTED X 2 ON ROOM AIR WITH A SPO2 97%. PATIENT IS REFUSING MEDICATIONS, CALM, ISOLATES IN ROOM, AND IS COOPERATIVE. PATIENT DENIES SUICIDAL AND HOMICIDAL IDEATIONS AT THIS TIME. PATIENT ASSISTED WITH TURNING AND REPOSITIONING Q2HR AND PRN FOR COMFORT AND CIRCULATION. PATIENT HAS NO NEEDS AT THIS TIME. PATIENT EDUCATED ON THE USE OF THE CALL LIGHT. PATIENT BED SIDE RAILS UP X 2 FOR SAFETY. PATIENT BED IS LOCKED, LOW, WITH BED ALARM ON. WILL CONTINUE TO MONITOR THIS PATIENT Q15 MINUTES WITH THE HELP OF STAFF TO MAINTAIN SAFETY.
--- NOTE | 2020-11-27 21:14 | NUR ---
GPS RN NOTE, PATIENT REFUSED PEPCID 20MG PO Q12HR, RISPERDAL 1MG PO Q12HR, AND CARAFATE 1G PO ACHS. OFFERED AFOREMENTIONED MEDICATION THREE TIMES AND STILL PATIENT REFUSED STATING, " I DON'T NEED ANY OF THOSE MEDICATION I FINE WITHOUT THEM ". EDUCATED PATIENT ON THE RISKS AND BENEFITS OF TAKING AND REFUSING PEPCID, RISPERDAL, AND CARAFATE. WILL CONTINUE TO MONITOR THIS PATIENT WITH HELP OF STAFF.
[2020-11-28] MEDS: SUCRALFATE 1 G TABLET PO SCH ×4 (07:30→21:12)
[2020-11-28 08:00] VITALS: BP 123/88
[2020-11-28] MEDS: DIVALPROEX SODIUM 125 MG CAP.SPRINK PO SCH ×2 (08:52→17:00)
[2020-11-28] MEDS: risperiDONE 1 MG TABLET PO SCH ×2 (08:53→21:00)
[2020-11-28] MEDS: FAMOTIDINE (20 MG) 20 MG TABLET PO SCH ×2 (08:53→21:00)
--- NOTE | 2020-11-28 08:53 | NUR ---
GPS/RN PT REFUSED AM MEDS OFFERED X3
[2020-11-28 16:00] VITALS: BP 145/97
[2020-11-28 20:39] VITALS: BP 98/65
[2020-11-29] MEDS: SUCRALFATE 1 G TABLET PO SCH ×4 (07:30→22:00)
[2020-11-29 08:00] VITALS: BP 156/95
[2020-11-29] MEDS: HALOPERIDOL 1 MG TABLET PO SCH ×3 (08:37→17:00)
[2020-11-29] MEDS: FAMOTIDINE (20 MG) 20 MG TABLET PO SCH ×2 (08:37→21:00)
[2020-11-29] MEDS: DIVALPROEX SODIUM 125 MG CAP.SPRINK PO SCH ×2 (08:37→17:00)
[2020-11-29] MEDS: HALOPERIDOL LACTATE INJ 5 MG/ML VIAL IM PRN ×3 (08:38→17:09)
[2020-11-29 16:00] VITALS: BP 127/74
[2020-11-29 20:09] VITALS: BP 96/65
[2020-11-29 20:15] VITALS: BP 96/65
--- NOTE | 2020-11-29 21:27 | NUR ---
RN NOTE: MEDICATION REFUSAL PATIENT REFUSED TO TAKE PEPCID 20 MG X 3 DESPITE OF RISKS & BENEFITS EXPLANATIONS. PATIENT IS NON COMPLAINT WITH MEDICINES.
--- NOTE | 2020-11-29 22:15 | NUR ---
RN NOTE: MEDICATION REFUSAL PATIENT REFUSED TO TAKE CARAFATE 1 GM X 3 DESPITE OF RISKS & BENEFITS EXPLANATIONS. PER PATIENT," I DON'T NEED IT." PATIENT IS NON COMPLAINT WITH MEDICINES.
[2020-11-30] MEDS: SUCRALFATE 1 G TABLET PO SCH ×4 (07:30→22:00)
[2020-11-30] MEDS: FAMOTIDINE (20 MG) 20 MG TABLET PO SCH ×2 (08:21→21:00)
[2020-11-30] MEDS: DIVALPROEX SODIUM 125 MG CAP.SPRINK PO SCH ×2 (08:21→17:00)
[2020-11-30] MEDS: HALOPERIDOL 1 MG TABLET PO SCH ×3 (08:21→17:00)
[2020-11-30] MEDS: HALOPERIDOL LACTATE INJ 5 MG/ML VIAL IM PRN ×3 (08:22→17:02)
[2020-11-30 16:00] VITALS: BP 132/74
[2020-11-30 20:25] VITALS: BP 104/63
--- NOTE | 2020-11-30 22:12 | NUR ---
GPS RN NOTES: PATIENT REFUSED PEPCID 20MG 1TAB PO AND CARAFATE 1GM PO ORDERED. WILL CONTINUE TO MONITOR.
--- NOTE | 2020-12-01 06:38 | NUR ---
GPS RN CLOSING NOTES: PATIENT IS CURRENTLY SLEEPING. PATIENT SLEPT 8HRS THIS SHIFT. PATIENT REFUSED WEEKLY SKIN ASSESSMENT. NO S/S OF DISTRESS. RESPIRATION EVEN AND UNLABORED WITH EQUAL RISE AND FALL OF THE CHEST ON ROOM AIR. ALL PATIENT CARE NEEDS HAVE BEEN MET ANTICIPATED. BED IN LOWEST POSITION AND LOCKED, WITH SIDE RAILS UP X2 FOR SAFETY. WILL CONTINUE TO MONITOR FOR SAFETY, MOOD AND BEHAVIOR AND ENDORSE TO AM SHIFT.
[2020-12-01 07:15] LABS: CREATININE 0.7 mg/dL (0.6-1.3); MAGNESIUM 2.2 mg/dL (1.8-2.4); PHOSPHORUS 3.9 mg/dL (2.5-4.9); POTASSIUM 3.9 mmol/L (3.5-5.1)
[2020-12-01 07:24] LABS: THYROID STIMULATING HORMONE 7.473 uIU/mL (0.358-3.74); URIC ACID 3.2 mg/dL (2.6-7.2)
[2020-12-01] MEDS: SUCRALFATE 1 G TABLET PO SCH ×5 (07:30→22:00)
[2020-12-01 08:00] VITALS: BP 128/90
[2020-12-01] MEDS: FAMOTIDINE (20 MG) 20 MG TABLET PO SCH ×2 (08:35→21:00)
[2020-12-01] MEDS: DIVALPROEX SODIUM 125 MG CAP.SPRINK PO SCH ×2 (08:35→16:53)
[2020-12-01] MEDS: HALOPERIDOL 1 MG TABLET PO SCH ×3 (08:35→16:53)
[2020-12-01] MEDS: HALOPERIDOL LACTATE INJ 5 MG/ML VIAL IM PRN ×3 (08:36→16:54)
--- NOTE | 2020-12-01 08:36 | NUR ---
RN NOTE: MEDICATION REFUSAL PT REFUSED ALL PO MEDICATIONS. PT IS RIESED. BACK UP HALDOL INJECTION ADMINISTERED. PT TOLERATED INJECTION WELL.
--- NOTE | 2020-12-01 12:11 | NUR ---
RN NOTE: MEDICATION REFUSAL PT REFUSED 1300 HALDOL PO. ATTEMPTED TO EDUCATE PT RE IMPORTANCE OF MEDICATION COMPLIANCE. PT CONT'D TO REFUSE X 3. HALDOL 1MG BACK UP INJECTION ADMINISTERED TO PT'S LEFT GLUTEUS.
[2020-12-01 16:00] VITALS: BP 122/85
--- NOTE | 2020-12-01 16:54 | NUR ---
RN NOTE: MEDICATION REFUSAL PT REFUSED 1700 PO MEDICATIONS. ATTEMPTED TO EDUCATE PT RE IMPORTANCE OF MEDICATION COMPLIANCE. PT CONT'D TO REFUSED X 3. HALDOL 1MG IM BACK UP ADMINISTERED TO RIGHT GLUTEUS. PT TOLERATED WELL
--- NOTE | 2020-12-01 22:05 | NUR ---
GPS RN NOTES: PATIENT REFUSED PEPCID 20MG 1TAB PO AND CARAFATE 1GM PO ORDERED. WILL CONTINUE TO MONITOR.
--- NOTE | 2020-12-02 06:32 | NUR ---
GPS RN CLOSING NOTES: PATIENT IS AWAKE, SEEN AMBULATING IN UNIT. PATIENT SLEPT 8HRS THIS SHIFT. NO S/S OF DISTRESS. RESPIRATION EVEN AND UNLABORED WITH EQUAL RISE AND FALL OF THE CHEST ON ROOM AIR. ALL PATIENT CARE NEEDS HAVE BEEN MET ANTICIPATED. BED IN LOWEST POSITION AND LOCKED, WITH SIDE RAILS UP X2 FOR SAFETY. WILL CONTINUE TO MONITOR FOR SAFETY, MOOD AND BEHAVIOR AND ENDORSE TO AM SHIFT.
[2020-12-02] MEDS: SUCRALFATE 1 G TABLET PO SCH ×4 (07:30→21:34)
[2020-12-02 08:00] VITALS: BP 129/80
[2020-12-02] MEDS: DIVALPROEX SODIUM 125 MG CAP.SPRINK PO SCH ×2 (08:08→16:24)
[2020-12-02] MEDS: FAMOTIDINE (20 MG) 20 MG TABLET PO SCH ×2 (08:08→21:00)
[2020-12-02] MEDS: HALOPERIDOL 1 MG TABLET PO SCH ×3 (08:08→16:24)
[2020-12-02] MEDS: HALOPERIDOL LACTATE INJ 5 MG/ML VIAL IM PRN ×3 (08:27→16:26)
--- NOTE | 2020-12-02 08:27 | NUR ---
RN NOTE: MEDICATION REFUSAL PT REFUSED ALL 0900 PO MEDICATIONS. ATTEMPTED TO EDUCATE PT RE IMPORTANCE OF MEDICATION COMPLIANCE. PT CONT'D TO REFUSE X 3. MEDICATED WITH HALDOL 1MG IM BACK UP ORDER IN LEFT GLUTEUS. PT SAMIA WELL. WILL CONT TO MONITOR FOR SAFETY AND BEHAVIOR PER PROTOCL
--- NOTE | 2020-12-02 12:53 | NUR ---
RN NOTE: MEDICATION REFUSAL PT REFUSED ALL 1300 PO MEDICATIONS. ATTEMPTED TO EDUCATED PT RE IMPORTANCE OF MEDICATION COMPLIANCE. PT CONT'D TO REFUSE X 3. IM HALDOL ADMINISTERED TO LEFT GLUTEUS. PT TOLERATED WELL
[2020-12-02 16:02] VITALS: BP 118/78
--- NOTE | 2020-12-02 16:26 | NUR ---
RN NOTE: MEDICATION REFUSAL PT REFUSED 1700 PO MEDICATIONS. ATTEMPTED TO EDUCATE PT RE IMPORTANCE OF MEDICATION COMPLIANCE. PT CONT'D TO REFUSE X 3. MEDICATED WITH HALDOL 1MG IM BACK UP TO RIGHT GLUTEUS. PT SAMIA WELL
[2020-12-02 20:00] VITALS: BP 105/74
--- NOTE | 2020-12-02 21:34 | NUR ---
GPS RN NOTES: PATIENT REFUSED PEPCID 20MG 1TAB PO AND CARAFATE 1GM PO ORDERED. WILL CONTINUE TO MONITOR.
[2020-12-03] MEDS: SUCRALFATE 1 G TABLET PO SCH ×4 (07:30→21:36)
[2020-12-03 08:00] VITALS: BP 119/66
[2020-12-03] MEDS: HALOPERIDOL 1 MG TABLET PO SCH ×3 (08:26→16:11)
[2020-12-03] MEDS: DIVALPROEX SODIUM 125 MG CAP.SPRINK PO SCH ×2 (08:26→16:11)
[2020-12-03] MEDS: HALOPERIDOL LACTATE INJ 5 MG/ML VIAL IM PRN ×3 (08:26→16:12)
[2020-12-03] MEDS: FAMOTIDINE (20 MG) 20 MG TABLET PO SCH ×2 (08:26→21:00)
--- NOTE | 2020-12-03 08:40 | NUR ---
RN NOTE: MEDICATION REFUSAL PT REFUSED 0900 PSYCHIATRIC MEDICATIONS. ATTEMPTED TO EDUCATE PT RE IMPORTANCE OF MEDICATION COMPLIANCE. PT CONT'D TO REFUSE. HALDOL 2MG IM ADMINISTERED TO LEFT GLUTEUS. PT TOLERATED WELL.
--- NOTE | 2020-12-03 12:09 | NUR ---
RN NOTE: MEDICATION REFUSAL. PT REFUSED 1300 HALDOL PO. ATTEMPTED TO EDUCATE PT RE IMPORTANCE OF MEDICATION COMPLIANCE. PT CONT'D TO REFUSE X 3. HALDOL 2MG IM ADMINISTERED TO RIGHT GLUTEUS. PT TOLERATED WELL
[2020-12-03 16:00] VITALS: BP 130/75
--- NOTE | 2020-12-03 16:13 | NUR ---
RN NOTE: MEDICATION REFUSAL PT REFUSED 1700 DEPAKOTE AND HALDOL PO. ATTEMPTED TO EDUCATE PT RE IMPORTANCE OF MEDICATION COMPLIANCE. PT CONT'D TO REFUSE X 3. HALDOL 2MG ADMINISTERED TO LEFT GLUTEUS. PT TOLERATED WELL
[2020-12-03 16:41] LABS: CALCIUM, SERUM 9.1 mg/dL (8.5-10.1); CREATININE 0.7 mg/dL (0.6-1.3); POTASSIUM 4.5 mmol/L (3.5-5.1)
--- NOTE | 2020-12-03 21:00 | NUR ---
RN NOTE: MEDICATION REFUSAL PATIENT REFUSED TO TAKE CARAFATE AND PEPCID. OFFERED X3, DESPITE OF RISKS & BENEFITS EXPLANATIONS. PATIENT STATED, "NO, I DON'T NEED IT".
[2020-12-04] MEDS: SUCRALFATE 1 G TABLET PO SCH ×4 (07:30→21:13)
[2020-12-04 08:00] VITALS: BP 116/78
[2020-12-04] MEDS: FAMOTIDINE (20 MG) 20 MG TABLET PO SCH ×2 (09:00→21:00)
[2020-12-04] MEDS: DIVALPROEX SODIUM 125 MG CAP.SPRINK PO SCH ×2 (09:00→17:00)
[2020-12-04] MEDS: HALOPERIDOL 1 MG TABLET PO SCH ×3 (09:00→17:00)
[2020-12-04] MEDS: HALOPERIDOL LACTATE INJ 5 MG/ML VIAL IM PRN ×3 (09:45→17:39)
--- NOTE | 2020-12-04 09:50 | NUR ---
RN-NOTES PATIENT REFUSED 0730 MEDICATIONS AND 0900AM MEDICATIONS DESPITE EXPLANATIONS RISK AND BENEFITS. PATIENT STATED" IF IT IS THROUGH MOUTH I DON'T TAKE IT, I RATHER HAVE THE INJECTIONS BECAUSE I DON'T HAVE THE CHOICE". PATIENT IS REISED HALDOL LACTATE 2MG IM GIVEN ORDERED. PATIENT WILLINGLY ACCEPT THE IM SHOT ON HER RIGHT BUTTOCK.
--- NOTE | 2020-12-04 12:22 | NUR ---
RN-NOTES PATIENT CONTINUE REFUSING P.O MEDICATION.
--- NOTE | 2020-12-04 14:11 | NUR ---
RN-NOTES PATIENT REFUSED HALDOL P.O, HALDOL 2MG IM GIVEN PRN ORDER. PATIENT IS RIESED.
[2020-12-04 16:00] VITALS: BP 93/67
--- NOTE | 2020-12-04 17:44 | NUR ---
RN-NOTES PATIENT CONTINUE REFUSING P.O MEDICATIONS INCLUDING HALDOL 2MG P.O. PATIENT IS RIESED, HALDOL 2MG IM GIVEN PRN ORDER.
[2020-12-04 20:47] VITALS: BP 104/73
--- NOTE | 2020-12-04 21:30 | NUR ---
RN NOTE: MEDICATION REFUSAL PATIENT REFUSED TO TAKE CARAFATE AND PEPCID. OFFERED X3, DESPITE OF RISKS & BENEFITS EXPLANATIONS. PATIENT CONTINUED TO REFUSE. PATIENT STATED, "NO, I DON'T NEED IT".
[2020-12-05] MEDS: SUCRALFATE 1 G TABLET PO SCH ×4 (07:30→21:05)
[2020-12-05 08:00] VITALS: BP 113/71
[2020-12-05] MEDS: DIVALPROEX SODIUM 125 MG CAP.SPRINK PO SCH ×2 (09:00→16:23)
[2020-12-05] MEDS: FAMOTIDINE (20 MG) 20 MG TABLET PO SCH ×2 (09:00→21:00)
[2020-12-05] MEDS: HALOPERIDOL 1 MG TABLET PO SCH ×3 (09:00→16:23)
[2020-12-05] MEDS: HALOPERIDOL LACTATE INJ 5 MG/ML VIAL IM PRN ×3 (09:07→16:23)
--- NOTE | 2020-12-05 09:07 | NUR ---
RN-NOTES PATIENT REFUSED 0730 MEDICATIONS AND ALL 0900AM MEDICATIONS INCLUDING HALDOL 2MG P.O PATIENT STATED" I WANT THE SHOT AND GIVE ME ON MY RIGHT SHOULDER PLEASE". PATIENT IS REISED, HALDOL 2MG IM GIVEN ORDERED.
--- NOTE | 2020-12-05 10:57 | NUR ---
RN-NOTES PATIENT LYING IN BED AWAKE,ALERT GUARDED,CALM,NO ACUTE DISTRESS NOTED. ENDORSED TO THE RN NURSE FOR THE CONTINUITY OF CARE .
--- NOTE | 2020-12-05 14:47 | NUR ---
Assumed care: Pt. is asleep in bed, breathing is even and unlabored. No distress and no agitation noted. Will continue to monitor for safety.
[2020-12-05 16:00] VITALS: BP 124/71
[2020-12-05 20:27] VITALS: BP 109/69
--- NOTE | 2020-12-05 21:06 | NUR ---
RN NOTE: MEDICATION REFUSAL PATIENT REFUSED TO TAKE CARAFATE AND PEPCID. OFFERED X3, ENCOURAGED ,DESPITE OF RISKS & BENEFITS EXPLANATIONS. PATIENT STRONGLY REFUSED REFUSE. PATIENT STATED, "NO, I AM NOT TAKING . WILL CONTINUE WITH CARE.
[2020-12-06] MEDS: SUCRALFATE 1 G TABLET PO SCH ×4 (07:30→21:09)
[2020-12-06 07:42] LABS: ALBUMIN 3.3 g/dL (3.4-5.0); BILIRUBIN,TOTAL 0.4 mg/dL (0.2-1.0); CALCIUM, SERUM 8.5 mg/dL (8.5-10.1); CREATININE 0.7 mg/dL (0.6-1.3); MAGNESIUM 1.9 mg/dL (1.8-2.4); PHOSPHORUS 3.8 mg/dL (2.5-4.9); POTASSIUM 3.9 mmol/L (3.5-5.1); TOTAL PROTEIN, SERUM 6.4 g/dL (6.4-8.2)
[2020-12-06 08:00] VITALS: BP 115/69
[2020-12-06] MEDS: HALOPERIDOL 1 MG TABLET PO SCH ×3 (09:00→17:00)
[2020-12-06] MEDS: FAMOTIDINE (20 MG) 20 MG TABLET PO SCH ×2 (09:00→21:00)
[2020-12-06] MEDS: DIVALPROEX SODIUM 125 MG CAP.SPRINK PO SCH ×2 (09:00→17:00)
--- NOTE | 2020-12-06 09:00 | NUR ---
RN-NOTES DR. MENDOZA SEEN THE PATIENT AND MADE AWARE OF PATIENT NON COMPLIANT WITH MEDICATIONS.
[2020-12-06] MEDS: HALOPERIDOL LACTATE INJ 5 MG/ML VIAL IM PRN ×3 (09:03→17:22)
--- NOTE | 2020-12-06 09:04 | NUR ---
RN-NOTES PATIENT TILL REFUSED 0730 MEDICATIONS AND ALL 0900AM MEDICATIONS INCLUDING HALDOL 2MG P.O PATIENT STATED" JUST GIVE ME THE SHOT". PATIENT IS REISED, HALDOL 2MG IM GIVEN ORDERED.
--- NOTE | 2020-12-06 13:26 | NUR ---
RN-NOTES PATIENT REFUSED HALDOL 2MG P.O, PREFERS HALDOL 2MG IM . PATIENT IS RIESED.
[2020-12-06 16:00] VITALS: BP 106/69
--- NOTE | 2020-12-06 17:22 | NUR ---
RN-NOTES PATIENT CONTINUE REFUSING P.O MEDICATIONS INCLUDING HALDOL 2MG P.O. PATIENT IS RIESED, HALDOL 2MG IM GIVEN ORDER.
[2020-12-07] MEDS: SUCRALFATE 1 G TABLET PO SCH ×4 (07:30→22:00)
[2020-12-07] MEDS: HALOPERIDOL 1 MG TABLET PO SCH ×3 (09:00→16:24)
[2020-12-07] MEDS ORDERED: HALOPERIDOL DECANOATE IM 100 MG/ML AMPUL IM ONE (09:00)
[2020-12-07] MEDS: DIVALPROEX SODIUM 125 MG CAP.SPRINK PO SCH ×2 (09:00→16:23)
[2020-12-07] MEDS: FAMOTIDINE (20 MG) 20 MG TABLET PO SCH ×2 (09:00→21:00)
[2020-12-07] MEDS: HALOPERIDOL LACTATE INJ 5 MG/ML VIAL IM PRN ×2 (09:05→16:24)
--- NOTE | 2020-12-07 11:52 | NUR ---
RN-CO: HALDOL DECANOATE 50 MG IM GIVEN. PT TOLERATED WELL.
--- NOTE | 2020-12-07 12:45 | NUR ---
RN-CO: PATIENT IS SHOWERING AT THIS TIME.
--- NOTE | 2020-12-07 15:57 | NUR ---
RN-CO: PATIENT IS STILL REFUSING HER PO MEDICATIONS. SHE STATED " I DON'T NEED THEM."
--- NOTE | 2020-12-07 22:45 | NUR ---
Patient in bed.Refused to take photos for weekly skin assessment.Advised of risk and benefits.
[2020-12-08] MEDS: SUCRALFATE 1 G TABLET PO SCH ×4 (07:30→21:18)
[2020-12-08 08:00] VITALS: BP 100/65
[2020-12-08] MEDS: HALOPERIDOL LACTATE INJ 5 MG/ML VIAL IM PRN ×3 (08:34→16:24)
[2020-12-08] MEDS: DIVALPROEX SODIUM 125 MG CAP.SPRINK PO SCH ×2 (08:35→16:24)
[2020-12-08] MEDS: FAMOTIDINE (20 MG) 20 MG TABLET PO SCH ×2 (08:35→21:00)
[2020-12-08] MEDS: HALOPERIDOL 1 MG TABLET PO SCH ×3 (08:35→16:24)
--- NOTE | 2020-12-08 08:35 | NUR ---
RN NOTE: MEDICATION REFUSAL PT REFUSED ALL AM PO MEDICATIONS. ATTEMPTED TO EDUCATE PT RE IMPORTANCE OF MEDICATION COMPLIANCE. PT CONT'D TO REFUSE X 3. HALDOL 2MG ADMINISTERED IM TO RIGHT GLUTEUS. PT TOLERATED WELL.
--- NOTE | 2020-12-08 12:09 | NUR ---
RN NOTE: MEDICATION REFUSAL PT REFUSED 1300 HALDOL. ATTEMPTED TO EDUCATE PT RE IMPORTANCE OF MEDICATION COMPLIANCE. PT CONT'D TO REFUSE X 3. HALDOL 2MG IM ADMINISTERED.
[2020-12-08 16:00] VITALS: BP 124/71
--- NOTE | 2020-12-08 16:25 | NUR ---
RN NOTE: MEDICATION REFUSAL PT REFUSED 1700 MEDICATIONS. ATTEMPTED TO EDUCATE PT RE IMPORTANCE OF MEDICATION COMPLIANCE. PT CONT'D TO REFUSE X 3. HALDOL 2MG IM ADMINISTERED TO RIGHT GLUTEUS. PT TOLERATED WELL
--- NOTE | 2020-12-08 21:56 | NUR ---
Pt refused 2100 meds Pepcid 20 mg and Carafate 1 g. Offered x3 and explained risk and benefits. Still refused. pt states, " i dont want those meds, i told my doctor i dont take those". Charge nurse RN aware. Will continue to monitor.
[2020-12-09] MEDS: SUCRALFATE 1 G TABLET PO SCH ×2 (07:30→11:54)
[2020-12-09] MEDS: DIVALPROEX SODIUM 125 MG CAP.SPRINK PO SCH (08:05)
[2020-12-09] MEDS: HALOPERIDOL 1 MG TABLET PO SCH ×2 (08:05→12:06)
[2020-12-09] MEDS: FAMOTIDINE (20 MG) 20 MG TABLET PO SCH (08:05)
[2020-12-09] MEDS: HALOPERIDOL LACTATE INJ 5 MG/ML VIAL IM PRN ×2 (08:06→12:07)
--- NOTE | 2020-12-09 08:06 | NUR ---
RN NOTE: MEDICATION AND VS REFUSAL PT REFUSED 0900 PO MEDICATIONS WELL AM VITAL SIGNS. ATTEMPTED TO EDUCATE PT RE IMPORTANCE OF MEDICATION COMPLIANCE. PT CONT'D TO REFUSE X 3. HALDOL 2MG IM ADMINISTERED TO LEFT GLUTEUS. PT TOLERATED WELL
--- NOTE | 2020-12-09 12:01 | NUR ---
RN NOTE: REPORT CALLED TO LARA SWEET AT [facility]
--- NOTE | 2020-12-09 12:07 | NUR ---
RN NOTE: MEDICATION REFUSAL PT REFUSED 1300 PO HALDOL. ATTEMPTED TO EDUCATE PT RE IMPORTANCE OF MEDICATION COMPLIANCE. PT CONT'D TO REFUSE X 3. HALDOL 2MG IM ADMINISTERED TO RIGHT GLUTEUS. PT TOLERATED WELL.
--- NOTE | 2020-12-09 13:40 | NUR ---
CLAY MILLER NOTE: 65 YEAR OLD FEMALE DISCHARGED TO [facility] IN STABLE CONDITION. VSS, AFEBRILE NO SOB NOTED. PT A+OX2-3 ABLE TO MAKE NEEDS KNOWN. PT COMPLIANT WITH IM HALDOL AND LONG ACTING ADMINISTERED 12/07. PT DENIES SI/HI/AH/VH. INSTRUCTED TO GO TO NEAREST ER OR CALL 911 IF EXPERIENCING SI/HI. PT IS AMBULATORY AND CONTINENT OF URINE AND STOOL. COVID NEG. MEDICATIONS RECONCILED WITH DR. CRUZ AND JOE RICE. PSYCHIATRIC TREATMENT PLANS MET. MEDICAL TREATMENT PLANS DEFERRED FOR CONTINUITY OF CARE. REPORT CALLED TO LARA SWEET. EXIT CARE REVIEWED WITH PT. PT VERBALIZED AGREEMENT. PATIENT ID BAND REMOVED. BELONGINGS RETURNED TO THE PATIENT. SKIN INTACT ON ADMIT AND PATIENT REPEATEDLY REFUSED PICTURES. PATIENT LEFT THE UNIT AT 1340 WITH EMS PRESENT VIA [employer].
--- NOTE | 2020-12-09 14:26 | NUR ---
Updated discharge plan: Pt will be discharged to [facility] ([facility]) located at [address] [place] [address]; ([phone]). Pt will be transported via [facility] at 1PM. does not have anyone to contact regarding this discharge. Upon discharge, pt appears to be in a dysphoric mood and presents with a guarded affect. Pt denies suicidal and homicidal ideation and denies visual and auditory hallucinations. Pt appears to be alert and oriented x3 (time, place, and self). Pt appears to be well groomed and ambulatory with an unsteady gait. Pt will follow up with psychiatrist, Dr. Irizarry, located at [address], [address] [place] [address]; and auto radiator mechanic, Dr. Lynn, located at [address] [place], [address]; . Pt was provided with homeless resources and a copy was placed in the chart. The homeless waiver, choice of vendor form and the multidisciplinary exit care form was done, printed, signed, and given to the patient.
== END 2020-12-09 13:40 | DRG 885 ==
LOC: GPS 09:51
PROVIDERS: ADMIT Psychiatry & Neurology Psychosomatic Medicine; ATTEND Nurse Practitioner Acute Care
DX: F25.0 Schizoaffective disorder, bipolar type (principal); E87.1 Hypo-osmolality and hyponatremia; E86.1 Hypovolemia; E87.6 Hypokalemia; M35.00 Sjogren syndrome, unspecified; I10 Essential (primary) hypertension; Z73.82 Dual sensory impairment; K21.9 Gastro-esophageal reflux disease without esophagitis; Z59.0 Homelessness; Z91.19 Patient's noncompliance with other medical treatment and regimen; Z91.14 Patient's other noncompliance with medication regimen; E03.9 Hypothyroidism, unspecified; Z79.899 Other long term (current) drug therapy; F29 Unspecified psychosis not due to a substance or known physiological condition; Z73.6 Limitation of activities due to disability; K52.9 Noninfective gastroenteritis and colitis, unspecified; G20 Parkinson's disease; F39 Unspecified mood [affective] disorder
CPT/HCPCS: 36415; 80048-TC; 80053-TC; 83735-TC; 84100-TC; 84439-TC; 84443-TC; 84550-TC; 87081-TC; J1630; J1631; Q0162